=== PATIENT | male | born 1980 | race Caucasian/White ===

== ENCOUNTER 2018-03-05 19:59 | Emergency (ER) | payer OTHER ==
[~2018-03-05] VITALS: Ht 177.8 cm; Wt 104.1 kg
[2018-03-05 20:03] VITALS: BP 141/86
[2018-03-05] MEDS ORDERED: ACETAMINOPHEN 325 MG TABLET ONE (21:11)
[2018-03-05] MEDS ORDERED: ACETAMINOPHEN 325 MG TABLET PO ONE (21:30)
[2018-03-05] MEDS ORDERED: PLEASE ENTER ALLERGIES MC SCH (21:30)
== END 2018-03-05 21:33 | disposition home or self-care (01) ==
LOC: ED 21:25
DX: S52.122A Displaced fracture of head of left radius, initial encounter for closed fracture (principal); W19.XXXA Unspecified fall, initial encounter; Y93.89 Activity, other specified; Y99.8 Other external cause status; Y92.69 Other specified industrial and construction area as the place of occurrence of the external cause
CPT/HCPCS: 29105; 99284

== ENCOUNTER 2020-08-27 07:58 | Outpatient (CLI) | payer OTHER ==
[2020-08-27 11:30] LABS: ANION GAP 4 mmol/L (5-15); CALCIUM 8.8 mg/dL (8.5-10.1); CHLORIDE 108 mmol/L (98-107)
[2020-08-27 11:31] LABS: CREATININE 1.85 mg/dL (0.7-1.3)
[2020-09-21] MEDS ORDERED: MONT10TA17 PO (08:15)
== END 2020-08-27 23:59 | disposition home or self-care (01) ==
LOC: CFH 07:58
PROVIDERS: ATTEND Nurse Practitioner Family
DX: I45.19 Other right bundle-branch block (principal); R94.31 Abnormal electrocardiogram [ECG] [EKG]; R07.89 Other chest pain; N28.9 Disorder of kidney and ureter, unspecified; R42 Dizziness and giddiness
CPT/HCPCS: 36415; 78452; 80048; 93017; A9502

== ENCOUNTER 2020-09-21 07:28 | Day surgery (SDC) | payer OTHER ==
[~2020-09-21] VITALS: Ht 177.8 cm; Wt 106.8 kg
[2020-09-21] MEDS ORDERED: SODIUM CHLORIDE 0.9% 1,000 ML IV SCH (08:00)
[2020-09-21 08:06] VITALS: BP 127/80
[2020-09-21] MEDS ORDERED: LEVO5TAB29 PO (08:15)
[2020-09-21] MEDS ORDERED: MONT10TA96 PO (08:15)
[2020-09-21 08:20] LABS: BASOPHILS % (AUTO) 1 % (0-1); EOSINOPHILS % (AUTO) 3 % (1-7); LYMPHOCYTES % (AUTO) 46 % (22-44); MEAN CORPUSCULAR HEMOGLOBIN 31.7 pg (27.5-34.5); MEAN CORPUSCULAR HGB CONC 35.2 g/dL (33.2-36.2); MEAN PLATELET VOLUME 7.5 fL (7.4-10.4); MONOCYTES % (AUTO) 6 % (2-9); NEUTROPHILS % (AUTO) 43 % (42-75); PLATELET COUNT 174 x10^3/uL (130-400); RED BLOOD COUNT 5.47 x10^6/uL (4.38-5.82); RED CELL DISTRIBUTION WIDTH 12.6 % (9.4-14.8)
[2020-09-21 08:24] LABS: MD NO
[2020-09-21 08:32] LABS: ANION GAP 6 mmol/L (5-15); CHLORIDE 109 mmol/L (98-107); CREATININE 1.57 mg/dL (0.7-1.3)
[2020-09-21] MEDS ORDERED: ADENOSINE 6 MG/2 ML ONE (10:26)
[2020-09-21] MEDS ORDERED: LIDOCAINE 1%, 20ML ONE ×2 (10:27→11:39)
[2020-09-21] MEDS ORDERED: ISOPROTERENOL 0.2MG/ML, 5ML ONE (10:27)
[2020-09-21] MEDS ORDERED: MIDAZOLAM 1 MG/ML, 5ML ONE (10:33)
[2020-09-21] MEDS ORDERED: FENTANYL PF 100 MCG/2ML ONE (10:33)
[2020-09-21] MEDS ORDERED: MONTELUKAST 10 MG TABLET PO SCH (21:00)
[2020-09-21] MEDS ORDERED: LEVOCETIRIZINE 5 MG TAB PO SCH (21:00)
== END 2020-09-21 15:49 | disposition home or self-care (01) ==
LOC: CACL 07:28
PROVIDERS: ATTEND Internal Medicine Cardiovascular Disease
DX: I47.1 Supraventricular tachycardia (principal); I48.91 Unspecified atrial fibrillation; Z79.899 Other long term (current) drug therapy; Z72.89 Other problems related to lifestyle
CPT/HCPCS: 33285; 36415; 80048; 85025; 93613; 93620; 93621; 93623; 99156; 99157; C1730; C1764; C1894; C2630; J0153; J2250; J3010